=== PATIENT | female | born 1970 | race Caucasian/White ===

== ENCOUNTER 2018-08-18 20:48 | Emergency (ER) | payer OTHER ==
[~2018-08-18] VITALS: Ht 177.8 cm; Wt 113.9 kg
[2018-08-18 20:58] VITALS: Ht 177.8 cm; Wt 113.9 kg
[2018-08-19 00:09] LABS: BASOPHIL % 0.5 % (0-2); PLATELET COUNT 248 x10^3mcL (130-400)
[2018-08-19 00:10] LABS: RED CELL DISTRIBUTION WIDTH 15.6 % (11.5-14.5)
[2018-08-19 00:22] LABS: CALCIUM 8.6 mg/dL (8.5-10.1); CARBON DIOXIDE 26.8 mmol/L (21-32); CHLORIDE SERUM 104 mmol/L (98-107); CREATININE SERUM 0.8 mg/dL (0.6-1.0); GFR1 > 60 mL/min; GLUCOSE SERUM 68 mg/dL (74-106); POTASSIUM SERUM 3.7 mmol/L (3.5-5.1); SODIUM SERUM 141 mmol/L (136-145)
[2018-08-19 00:30] LABS: ALKALINE PHOSPHATASE 109 U/L (46-116); ALT/SGPT 29 U/L (14-59); AST/SGOT 26 U/L (15-37); BILIRUBIN TOTAL 0.72 mg/dL (0.20-1.00); TOTAL PROTEIN, SERUM 6.6 g/dL (6.4-8.2)
[2018-08-19 00:31] LABS: ALBUMIN 3.3 g/dL (3.4-5.0)
[2018-08-19 04:50] VITALS: BP 142/66
== END 2018-08-19 04:50 | disposition left against medical advice (07) ==
LOC: ED 20:48
PROVIDERS: Emergency Medicine
DX: R06.02 Shortness of breath (principal); I11.0 Hypertensive heart disease with heart failure; I50.9 Heart failure, unspecified; F41.9 Anxiety disorder, unspecified; F43.10 Post-traumatic stress disorder, unspecified; Z98.890 Other specified postprocedural states
CPT/HCPCS: 36415; 85378; Q0092; Q9967

== ENCOUNTER 2018-09-07 14:48 | Inpatient (IN) | payer OTHER ==
[~2018-09-07] VITALS: Ht 177.8 cm; Wt 138.1 kg
--- NOTE | 2018-09-07 14:57 | NUR ---
EKG IN PROGRESS.
--- NOTE | 2018-09-07 15:21 | NUR ---
PT PRESENTS TO THE ED TODAY WITH C/C OF SOB. PT REPORTS THAT SHE WAS SEEN HERE IN ED X2 WEEKS AGO, AND WAS RULED OUT FOR "BLOOD CLOTS." PT WAS TOLD TO FIND A PMD AND F/U WITH A PMD AND SENT HOME WITH AN RX FOR LASIX. PT WAS UNABLE TO REFILL RX FOR LASIX, BUT TOOK HER MOTHER'S PRESCRIPTION. PT WAS UNABLE TO F/U WITH PMD AFTER SHE HAD MADE AN APPT YESTERDAY. PT REPORTS FEELING SOB X2 WEEKS, WORSE WHEN SHE TRIES TO DO HOUSE WORK AND WALK UP THE STAIRS. BILATERAL PITTING EDEMA NOTED TO PT'S LEGS. PT STATES "THEY AREN'T EVEN SWOLLEN ANYMORE, THEY WERE WAY WORSE." PT IS AWAKE AND ALERT, RESP E/U, SPEAKING IN FULL CLEAR SENTENCES, NAD NOTED. AWAITING MSE.
[2018-09-07 15:50] LABS: BASOPHIL % 0.4 % (0-2); PLATELET COUNT 228 x10^3mcL (130-400)
[2018-09-07 15:52] LABS: RED CELL DISTRIBUTION WIDTH 16.4 % (11.5-14.5)
[2018-09-07 16:03] LABS: CALCIUM 8.9 mg/dL (8.5-10.1); CARBON DIOXIDE 22.8 mmol/L (21-32); CHLORIDE SERUM 106 mmol/L (98-107); CREATININE SERUM 0.7 mg/dL (0.6-1.0); GFR1 > 60 mL/min; GLUCOSE SERUM 94 mg/dL (74-106); POTASSIUM SERUM 3.9 mmol/L (3.5-5.1); SODIUM SERUM 141 mmol/L (136-145)
[2018-09-07 16:08] LABS: ALKALINE PHOSPHATASE 109 U/L (46-116); ALT/SGPT 29 U/L (14-59); AST/SGOT 28 U/L (15-37); BILIRUBIN TOTAL 0.88 mg/dL (0.20-1.00)
[2018-09-07 16:09] LABS: ALBUMIN 3.3 g/dL (3.4-5.0)
--- NOTE | 2018-09-07 16:17 | NUR ---
PT SITTING COMFORTABLY IN GURNEY, AWAKE AND ALERT, RESP E/U, DENIES ANY CP. CALL LIGHT IN REACH. HUSBNAD REMAINS AT BEDSIDE.
--- NOTE | 2018-09-07 17:11 | NUR ---
PT MEDICATED PER ORDER, PT VERBALIZED UNDERSTANDING OF MEDICATION PRIOR TO ADMINISTRATION. PT SITTING UP IN GURNEY, AWAKE AND ALERT, RESP E/U, CALL LIGHT IN REACH. AT BEDSIDE.
--- NOTE | 2018-09-07 17:46 | NUR ---
PT CURRENTLY OFF UNIT AT CT.
--- NOTE | 2018-09-07 18:01 | NUR ---
PT RETURNED FROM CT VIA WC, NAD NOTED.
--- NOTE | 2018-09-07 18:26 | NUR ---
PT SITTING QUIELTY ON BED EATING FOOD AND DRINKING SPRITE. NO S/S OF DISTRESS. WILL CONTINUE TO MONITOR
--- NOTE | 2018-09-07 19:10 | NUR ---
RECEIVED REPORT FROM HEIDI FIELD FOR CONTINUED CARE OF PATIENT.
--- NOTE | 2018-09-07 19:23 | NUR ---
PROVIDED REPORT TO HEIDI TORRES FOR CONTIMUED CARE OF PATIENT.
[2018-09-07 19:32] LABS: MAGNESIUM 2.2 mg/dL (1.8-2.4); PHOSPHOROUS 3.5 mg/dL (2.5-4.9)
[2018-09-07 19:34] LABS: CHOLESTEROL/HDL RATIO 3.8
--- NOTE | 2018-09-07 19:35 | NUR ---
RECEIVED PT FROM ED VIA CALLY, CAME IN DUE TO SOB. AAOX4. DENIES HEADACHE/DIZZINESS. ABLE TO FOLLOW COMMANDS. NO SOB NOTED, W/ EVEN AND UNLABORED BREATHING. LUNG SOUNDS CTA. O2 SAT=98%, RA. DENIES CHEST PAIN/PRESSURE, SINUS TACHYCARDIA ON THE MONITOR. W/ +1-2 EDEMA. PULSES ARE PALPABLE. IV SITE PATENT AND INTACT. SIDE RAILS UPX2. CALL LIGHT ON REACH. ENDORSED TO PRIMARY NURSE BRIAN FOR CONTINUITY OF CARE
--- NOTE | 2018-09-07 19:36 | NUR ---
PT RECEIVED FROM RESOURCE NURSE. PT A/O X4, ABLE TO MAKE NEEDS KNOWN, PARTNER AT BEDSIDE. TELE #3, DENIES ANY CP/PRESSURE. PULSES PALPABLE, 1-2 PITTING EDEMA TO BLE. BREATHING IS EVEN AND UNLABORED ON RA, DENIES SOB, NO RESP DISTRESS NOTED. ABD SOFT AND ROUND, DENIES N/V. VOIDS FREELY, BRP. AMBULATORY WITH STEADY GAIT. SKIN IS WARM AND DRY, INTACT. PT DENIES ANY PAIN AT THIS TIME. IV TO RAC, 20g, PATENT AND INTACT, SITE FREE FROM REDNESS OR SWELLING. ORIENTED PT TO ROOM AND CALL LIGHT. BED IN LOWEST SETTING, SIDE RAILS UP X2, CALL LIGHT WITHIN REACH. WILL CONT TO MONITOR.
--- NOTE | 2018-09-07 19:38 | NUR ---
RECEIVED CALL FROM DR DEUTSCH (RADIOLOGIST). PER DR DEUTSCH, "THERE'S AN ADDENDUM TO THE CT ANGIO. THERE IS A HUGE RUL PE. PLEASE LET THE DR KNOW." DR MERCER MADE AWARE. AWAITING ORDERS AT THIS TIME.
[2018-09-07 19:48] VITALS: BP 143/102
[2018-09-07 19:54] VITALS: Ht 177.8 cm; Wt 138.1 kg
--- NOTE | 2018-09-07 20:04 | NUR ---
PER TIANA MCKEON TO GIVE 11,000 UNITS LOADING DOSE OF HEPARIN AND START AT 1800 UNITS/HR OF HEPARIN DRIP. PRIMARY NURSE BRIAN MADE AWARE
[2018-09-07 20:32] VITALS: BP 124/77
--- NOTE | 2018-09-07 21:32 | NUR ---
HEPARIN DRIP INITIATED ORDERED FOR PE. IV LOADING DOSE OF 11,000 UNITS HEPARIN GIVEN. HEPARIN DRIP INITIATED AT 1800 UNITS/HR AND VERIFIED WITH ISABEL GORDON. PT EDUCATED ON S/S OF ABNORMAL BLEEDING, PT VERBALIZES UNDERSTANDING. NO ACUTE DISTRESS NOTED. CALL LIGHT WITHIN REACH. WILL CONT TO MONITOR.
--- NOTE | 2018-09-08 00:24 | NUR ---
PT C/O INSOMNIA, PRN AMBIEN GIVEN ORDERED. NO ACUTE DISTRESS NOTED. CALL LIGHT WITHIN REACH. WILL CONT TO MONITOR.
--- NOTE | 2018-09-08 01:20 | NUR ---
PT C/O SOB, BREATHING IS EVEN AND UNLABORED, 02 SAT ON RA-94%. PT PLACED ON 2L NC, 02 SAT-96%. NO RESP DISTRESS NOTED. CALL LIGHT WITHIN REACH. WILL CONT TO MONITOR.
[2018-09-08 02:04] LABS: UA SPECIFIC GRAVITY 1.015 (1.005-1.035); microscopic required? YES; urine erythrocyte NEGATIVE (NEGATIVE)
[2018-09-08 02:09] LABS: AMPHETAMINE QUAL UR POSITIVE (See below)
[2018-09-08 04:26] LABS: BASOPHIL % 0.5 % (0-2); PLATELET COUNT 248 x10^3mcL (130-400)
[2018-09-08 04:29] LABS: CALCIUM 8.7 mg/dL (8.5-10.1); CARBON DIOXIDE 27.4 mmol/L (21-32); CHLORIDE SERUM 104 mmol/L (98-107); CREATININE SERUM 0.8 mg/dL (0.6-1.0); GFR1 > 60 mL/min; GLUCOSE SERUM 124 mg/dL (74-106); POTASSIUM SERUM 4.2 mmol/L (3.5-5.1); SODIUM SERUM 140 mmol/L (136-145)
[2018-09-08 04:32] LABS: RED CELL DISTRIBUTION WIDTH 16.5 % (11.5-14.5)
--- NOTE | 2018-09-08 04:50 | NUR ---
RECEIVED PTT RESULTS-48.1, THERAPEUTIC. NO CHANGE MADE TO HEPARIN INFUSION. HEPARIN DRIP INFUSING WELL AT 1800 UNITS/HR TO THE LFA, SITE FREE FROM REDNESS OR SWELLING. NEW PTT ORDERED FOR 09/08 AT 0850. PT IN NO ACUTE DISTRESS. CALL LIGHT WITHIN REACH. WILL CONT TO MONITOR.
[2018-09-08 06:10] VITALS: BP 127/86
--- NOTE | 2018-09-08 06:52 | NUR ---
PT SLEPT AT INTERVALS THROUGHOUT THE EVENING. BREATHING IS EVEN AND UNLABORED ON 2L NC, NO RESP DISTRESS NOTED. HOB ELEVATED. PT DENIES HAVING ANY PAIN AT THIS TIME. HEPARIN DRIP INFUSING WELL TO LFA AT 1800 UNITS/HR, SITE FREE FROM REDNESS OR SWELLING. NEXT PTT DRAW IS TODAY AT 0850. ALL NEEDS ANTICIPATED AND MET. NO ACUTE DISTRESS OBSERVED AT THIS TIME. CALL LIGHT WITHIN REACH. WILL ENDORSE CARE TO AM NURSE.
--- NOTE | 2018-09-08 07:15 | NUR ---
RECEIVED BEDSIDE REPORT FROM GAS PUMP ATTENDANT NURSE AT THIS TIME. PATIENT RESTING COMFORTABLY IN BED. NO APPARENT DISTRESS OR DISCOMFORT NOTED. BREATHING EVEN AND UNLABORED. PATIENT DENIES SHORTNESS OF BREATH. INFORMED PATIENT SHE HAS 2L NC IF NEEDED. PATIENT VERBALIZES UNDERSTANDING. PATIENT DENIES CHEST PAIN AT THIS TIME. TELE [address] IV PATENT AND INTACT. HEPARIN DRIP INFUSING AT 1800. AWAITING PTT LAB. ALL QUESTIONS AND CONCERNS ADDRESSED. ALL NEEDS ATTENDED TO. WILL CONTINUE TO MONITOR
--- NOTE | 2018-09-08 07:27 | NUR ---
PT IN NO ACUTE DISTRESS. CONTINUITY OF CARE ENDORSED TO GITA GORDON. ALL QUESTIONS AND CONCERNS ADDRESSED.
--- NOTE | 2018-09-08 09:08 | NUR ---
ECHOCARDIOGRAM PENDING-HAVING ULTRASOUND
--- NOTE | 2018-09-08 09:32 | NUR ---
ALL MORNING MEDICATIONS ADMINISTERED. PATIENT TOLERATED ADMINISTRATION WELL. NO ADVERSE EFFECTS NOTED. NO APPARENT DISTRESS OR DISCOMFORT NOTED. ALL NEEDS ATTENDED TO. WILL CONTINUE TO MONITOR
--- NOTE | 2018-09-08 09:39 | NUR ---
ECHOCARDIOGRAM PENDING-NURSE WITH PATIENT
--- NOTE | 2018-09-08 09:45 | NUR ---
ABG DRAWN BUT INSUFFICIENT SAMPLE. PT REFUSED ANOTHER ABG DRAW. RN AWARE. PT ON RA, SPO2 OF 92%. NO RESP DISTRESS NOTED. WILL CONT TO MONITOR
[2018-09-08 09:55] VITALS: BP 115/81
--- NOTE | 2018-09-08 10:00 | NUR ---
ECHOCARDIOGRAM PENDING-DOCTOR WITH PATIENT
[2018-09-08 10:09] VITALS: BP 115/81
--- NOTE | 2018-09-08 10:38 | NUR ---
PATIENT C/O ANXIETY AT THIS TIME. MEDICATED WITH 1MG OF ATIVAN IVP. PATIENT TOLERATED WELL. NO ADVERSE EFFECTS NOTED. ALL NEEDS ATTENDED TO. WILL CONTINUE TO MONITOR
--- NOTE | 2018-09-08 11:14 | NUR ---
SPOKE TO DR THORNTON AT THIS TIME REGARDING DIRECTOR PHARMACY SERVICES INFORMATION OF EF < 15. DR THORNTON TO PUT MANAGER SCHEDULING CONSULT. REPORTED TO DR THORNTON REGARDING PATIENT HEAVY BREATHING AND DR THORNTON TO ASSESS PATIENT. AWAITING FURTHER ORDERS. WILL PROCEED ORDERED. ALL NEEDS ATTENDED TO. WILL CONTINUE TO MONITOR
--- NOTE | 2018-09-08 11:39 | NUR ---
PTT AT 47.0 AND THERAPEUTIC AT THIS TIME. NO CHANGE TO HEPARIN DRIP. THIS IS SECOND PTT THAT IS THERAPEUTIC. WILL ORDER PTT DAILY Q AM AT THIS TIME PER NURSING PROTOCOL. ALL NEEDS ATTENDED TO. WILL CONTINUE TO MONITOR
--- NOTE | 2018-09-08 12:37 | NUR ---
PATIENT REFUSING 3 UNITS OF INSULIN FOR COVERAGE OF BLOOD SUGAR 156. WILL NOTIFY DR THORNTON. ALL NEEDS ATTENDED TO. WILL CONTINUE TO MONITOR
--- NOTE | 2018-09-08 12:41 | NUR ---
PAGED DR THORNTON AT THIS TIME TO SPEAK WITH FAMILY AND PATIENT REGARDING POC. ENCOURAGED PATIENT TO STAY IN HOSPITAL TO RECEIVE TREATMENT. EDUCATED PATIENT ABOUT RISK OF LEAVING. PATIENT VERBALIZES UNDERSTANDING, BUT INSISTS ON WANTING TO LEAVE HOSPITAL. AWAITING CALL BACK FROM DR THORNTON AT THIS TIME. WILL CONTINUE TO MONITOR
[2018-09-08 13:01] VITALS: BP 122/84
--- NOTE | 2018-09-08 15:05 | NUR ---
DR HAHN AT BEDSIDE REVIEWING POC WITH PATIENT AT THIS TIME. ALL NEEDS ATTENDED TO. WILL CONTINUE TO MONITOR
[2018-09-08 17:32] VITALS: BP 106/75
--- NOTE | 2018-09-08 17:34 | NUR ---
PATIENT C/O 7/10 POUNDING CHEST PAIN. PATIENT MEDICATED WITH NORCO PRN PO. PATIENT STATES NORCO WAS EFFECTIVE AND PAIN IS DECREASING TO 4/10. PATIENT VITAL SIGNS STABLE. BLOOD PRESSURE 133/79 (91), O2 97 ON 3 L NC, HR [address] THORNTON AWARE. ALL NEEDS ATTENDED TO. WILL CONTINUE TO MONITOR
--- NOTE | 2018-09-08 19:29 | NUR ---
PATIENT RESTING COMFORTABLY IN BED AT THIS TIME. NO APPARENT DISTRESS OR DISCOMFORT NOTED. IV PATENT AND INTACT. ALL QUESTIONS AND CONCERNS ADDRESSED. SAFETY PRECAUTIONS MAINTAINED. 3L NC IN PLACE AND PATIENT TOLERATING WELL. ALL NEEDS ATTENDED TO. WILL ENDORSE ALL CARE TO INVESTIGATIVE ANALYST NURSE
--- NOTE | 2018-09-08 20:20 | NUR ---
Awake and verbally responsive. No respiratory distress noted. Denies n/v. denies pain at this time. Heparin drip @ 1800units/hr. Will cont. to monitor. Call light within reach.
[2018-09-08 21:08] VITALS: BP 107/79
--- NOTE | 2018-09-09 04:00 | NUR ---
Afebrile. No significant change in condition noted. Denies n/v. pain controlled. Remained on heparin drip @ 1800units/hr.
[2018-09-09 06:21] VITALS: BP 116/82
[2018-09-09 07:11] LABS: BASOPHIL % 0.3 % (0-2); PLATELET COUNT 246 x10^3mcL (130-400); RED CELL DISTRIBUTION WIDTH 16.7 % (11.5-14.5)
[2018-09-09 07:14] LABS: CALCIUM 8.8 mg/dL (8.5-10.1); CHLORIDE SERUM 103 mmol/L (98-107); GFR1 > 60 mL/min; GLUCOSE SERUM 125 mg/dL (74-106); PHOSPHOROUS 4.1 mg/dL (2.5-4.9); POTASSIUM SERUM 4.4 mmol/L (3.5-5.1); SODIUM SERUM 138 mmol/L (136-145)
--- NOTE | 2018-09-09 07:20 | NUR ---
RECEIVED PT FROM PIPE AND BOILER COVERS SUPERVISOR. PT IS CRYING AND SAID SHE IS HAVING ANXIETY. PAGED TO INFORM. ASSESSED AND WILL DOCUMENT. DENIES ANY PAIN. SAFTEY PRECAUTIONS ARE IN PLACE. WILL MONITOR.
--- NOTE | 2018-09-09 07:21 | NUR ---
PT IS ON HEPARIN DRIP 1800U/HR. PTT IS THERAPEUTIC. NO SIGNS OF BLEEDING.
--- NOTE | 2018-09-09 07:40 | NUR ---
PT IS STILL CRYING FOR SHE IS HAVING ANXIETY. INFORMED CHARGE NURSE AND REINALDO. DOCTOR SAID SHE WILL ORDER MEDICINE.
--- NOTE | 2018-09-09 07:57 | NUR ---
ATIVAN 0.5MG PO GIVEN ORDERED FOR PT ANXIETY. NOW SHE IS CRYING FOR SHE CAN'T REACH HER , SHE IS BEEN TRYING TO CALL HIM. CALLED HER AND HE SAID HE IS ON THE WAY, INFORMED PT ABOUT THAT.
[2018-09-09 08:06] VITALS: BP 107/76
--- NOTE | 2018-09-09 08:30 | NUR ---
PT'S AT BEDSIDE. THEY ARE ARGUING FOR SOMETHING. PT SAID SHE WANT TO LEAVE. PT IS ON HEPARIN DRIP 1800U/HR. CHARGE NURSE AWARE. PAGED TO INFORM. PT SAID SHE WILL WAIT FOR TO SEE THE DOCTOR. PT IS STABLE. NO SOB NOTED. 95% SPO2 IN RA.
--- NOTE | 2018-09-09 08:30 | NUR ---
PT IS REFUSING TO WEAR TELE. SHE WANT TO LEAVE. CHARGE NURSE AWARE.
--- NOTE | 2018-09-09 09:30 | NUR ---
AND REINALDO DID ROUNDS, SPOKE WITH PT. THEY TOLD HER THEY WILL DISCHARGE HER AND PT HAVE TO TAKE A DOSE OF ELIQUIS PO IN THE HOSPITAL AND CONTINUE PRESCRIPTION AT HOME. PT AGREED.
[2018-09-09] MEDS ORDERED: ATIVAN0.5 M1 PO (10:33)
[2018-09-09] MEDS ORDERED: COR3 PO (10:33)
[2018-09-09] MEDS ORDERED: ZESTRIL5 MG PO (10:34)
[2018-09-09] MEDS ORDERED: ELIQUIS5 MG PO (10:35)
[2018-09-09 10:53] VITALS: BP 105/66
--- NOTE | 2018-09-09 11:50 | NUR ---
DISCHARGE INSTRUCTIONS AND PRECRIPTIONS GIVEN. PB SIGNED AND SENT WITH PT. IV REMOVED AND DRESSING APPLIED. TELE REMOVED AND RETURNED. PT DENIED ANY PAIN. LEAD C DEVELOPER GOT THE WHEELCHAIR IN AND PT SAT THE WHEELCHAIR. SHE SAID SHE DOESNOT FEEL GOOD, SHE CANNOT BREATH AND FEEL NAUSEA. ASSISTED PT BACK IN THE BED. PUT THE O2 2L BACK AND INFORMED RT TO GIVE BREATHING TX. PAGED TO INFORM. INFORMED ABOUT EVERYTHING, HE SAID PT MAY NOT LEAVE BUT HE ASKED TO STILL INFORM . WATING FOR CALL BACK. CHARGE NURSE AWARE. VITAL SIGNS TAKEN PQ=092/61(81), HR=92, RESP=18, TEMP=98.4 AND SPO2 96% IN 2L O2. LUNG SOUNDS STILL CLEAR. RT GIVING BREATHING TX.
--- NOTE | 2018-09-09 12:10 | NUR ---
PT FINISH BREATHING TX. SHE SAID SHE WANT TO WAIT AND RELAX AN HOUR AND SEE HOW IS SHE FEEL. PAGED AGAIN. CHARGE NURSE AWARE. AH=458.
--- NOTE | 2018-09-09 13:10 | NUR ---
PT IS STILL SLEEPING, STABLE. NO SOB NOTED.
--- NOTE | 2018-09-09 13:30 | NUR ---
RECEIVED PT. FROM DENNIS MELENDEZ RN. PT. A/A/O X4. FAMILY AT BEDSIDE. PT. STATED " I FEEL MUCH BETTER NOW. I'M READY TO GO HOME." DR. NAJERA PAGED FOR VERIFICATION OF THE DISCHARGE. DISCHARGE INSTRUCTIONS WERE GIVEN TO PT. EARLIER BY HEIDI COLLINS.
--- NOTE | 2018-09-09 13:30 | NUR ---
PT IS STILL SLEEPING. GAVE REPORT TO NURSE JILLIAN. CALLED AND INFORMED HER ABOUT PT HAS NOT DISCHARGE YET BECAUSE SHE WAS NOT FEELING GOOD WHEN SHE ABOUT TO LEAVE AND NOW SHE IS SLEEPING. SAID IF SHE IS FEELING GOOD SHE CAN STILL DISCHARGE, INFORM JILLIAN ABOUT THAT.
[2018-09-09 13:40] VITALS: BP 109/70
--- NOTE | 2018-09-09 13:43 | NUR ---
DR. NAJERA RETURNED PHONE CALL. DR. NAJERA SAID OK TO DISCHARGE PT. HOME AT THIS TIME SINCE PT. IS STABLE FOR DISCHARGE. TELE. MONITOR #3 REMOVED AND RETURNED TO TELE. MONITOR STATION.
--- NOTE | 2018-09-09 14:00 | NUR ---
PT. IS BEING DISCHARGED IN STABLE CONDITION VIA WHEELCHAIR. ALL BELONGINGS SENT HOME WITH PT. UPON DISCHARGE. ACCOMPANIED BY HER FAMILY AT THE TIME OF DISCHARGE.
== END 2018-09-09 14:09 | disposition home or self-care (01) | DRG 175 ==
LOC: ED 14:48 → DU 17:44
PROVIDERS: Emergency Medicine; ADMIT General Practice
DX: I26.99 Other pulmonary embolism without acute cor pulmonale (principal); I50.43 Acute on chronic combined systolic (congestive) and diastolic (congestive) heart failure; J96.01 Acute respiratory failure with hypoxia; N17.0 Acute kidney failure with tubular necrosis; Z68.41 Body mass index [BMI] 40.0-44.9, adult; E11.9 Type 2 diabetes mellitus without complications; D50.9 Iron deficiency anemia, unspecified; F41.9 Anxiety disorder, unspecified; F15.10 Other stimulant abuse, uncomplicated; F12.10 Cannabis abuse, uncomplicated; E66.01 Morbid (severe) obesity due to excess calories; Z98.84 Bariatric surgery status; Z85.42 Personal history of malignant neoplasm of other parts of uterus
CPT/HCPCS: 82962; 83880; 85378; J1644; J1940; J2060; J2270; J2543; J7050; J7620; Q0092; Q9967

== ENCOUNTER 2018-09-14 18:19 | Emergency (ER) | payer OTHER ==
[~2018-09-14] VITALS: Ht 177.8 cm; Wt 138.3 kg
[~2018-09-14 18:19] MED LIST: ATIVAN0.5 M1 PO; COR3 PO; ELIQUIS5 MG PO; ZESTRIL5 MG PO
[2018-09-14 18:32] VITALS: Ht 177.8 cm; Wt 138.3 kg
[2018-09-14 19:56] LABS: BASOPHIL % 1.6 % (0-2); PLATELET COUNT 294 x10^3mcL (130-400)
[2018-09-14 20:02] LABS: RED CELL DISTRIBUTION WIDTH 16.9 % (11.5-14.5)
[2018-09-14 20:07] LABS: CALCIUM 8.9 mg/dL (8.5-10.1); CARBON DIOXIDE 27.5 mmol/L (21-32); CHLORIDE SERUM 107 mmol/L (98-107); CREATININE SERUM 0.8 mg/dL (0.6-1.0); GFR1 > 60 mL/min; GLUCOSE SERUM 109 mg/dL (74-106); POTASSIUM SERUM 4.6 mmol/L (3.5-5.1); SODIUM SERUM 143 mmol/L (136-145)
[2018-09-14 20:12] LABS: ALBUMIN 3.1 g/dL (3.4-5.0); ALKALINE PHOSPHATASE 116 U/L (46-116); ALT/SGPT 53 U/L (14-59); AST/SGOT 28 U/L (15-37); BILIRUBIN TOTAL 0.6 mg/dL (0.20-1.00); TOTAL PROTEIN, SERUM 6.7 g/dL (6.4-8.2)
[2018-09-14 21:17] LABS: AMPHETAMINE QUAL UR NONE DETECTED (See below)
[2018-09-14 22:28] VITALS: BP 148/96
== END 2018-09-14 22:28 | disposition home or self-care (01) ==
LOC: ED 18:19
PROVIDERS: Emergency Medicine
DX: R06.00 Dyspnea, unspecified (principal); F41.9 Anxiety disorder, unspecified; J91.8 Pleural effusion in other conditions classified elsewhere; E66.9 Obesity, unspecified; I11.0 Hypertensive heart disease with heart failure; I50.9 Heart failure, unspecified; Z68.41 Body mass index [BMI] 40.0-44.9, adult
CPT/HCPCS: 36600; 83880; J2060; J2405; J3490; Q0092

== ENCOUNTER 2018-09-21 12:53 | Inpatient (IN) | payer OTHER ==
[~2018-09-21] VITALS: Ht 177.8 cm; Wt 140.8 kg
[2018-09-21 14:03] LABS: BASOPHIL % 0.7 % (0-2); PLATELET COUNT 307 x10^3mcL (130-400)
[2018-09-21 14:07] LABS: CHLORIDE SERUM 107 mmol/L (98-107); CREATININE SERUM 0.8 mg/dL (0.6-1.0); GFR1 > 60 mL/min; GLUCOSE SERUM 86 mg/dL (74-106); POTASSIUM SERUM 4.7 mmol/L (3.5-5.1); SODIUM SERUM 140 mmol/L (136-145)
[2018-09-21 14:09] LABS: RED CELL DISTRIBUTION WIDTH 17.2 % (11.5-14.5)
[2018-09-21 14:12] LABS: ALKALINE PHOSPHATASE 121 U/L (46-116); ALT/SGPT 43 U/L (14-59); AST/SGOT 31 U/L (15-37); BILIRUBIN TOTAL 0.7 mg/dL (0.20-1.00); TOTAL PROTEIN, SERUM 6.8 g/dL (6.4-8.2)
[2018-09-21 14:14] LABS: ALBUMIN 3.2 g/dL (3.4-5.0)
[2018-09-21 17:03] LABS: microscopic required? YES; urine erythrocyte NEGATIVE (NEGATIVE)
[2018-09-21 17:10] LABS: AMPHETAMINE QUAL UR NONE DETECTED (See below)
[2018-09-21 17:11] LABS: T3 TOTAL 1.16 ng/mL
[2018-09-21 17:15] LABS: FREE T4 1.02 ng/dL (0.76-1.46); FREE THYROXINE INDEX 2.8 ug/dL (1.4-4.5); T4(THYROXINE) 7.8 ug/dL (4.7-13.3)
[2018-09-21 17:27] VITALS: BP 119/74
[2018-09-21 17:28] LABS: MAGNESIUM 2.1 mg/dL (1.8-2.4); PHOSPHOROUS 4.3 mg/dL (2.5-4.9)
[2018-09-21 17:32] LABS: CHOLESTEROL/HDL RATIO 3.3
[2018-09-21 17:33] VITALS: Ht 177.8 cm; Wt 140.8 kg
[2018-09-21 20:43] VITALS: BP 110/83
[2018-09-22 04:20] VITALS: BP 124/87
[2018-09-22 06:47] LABS: BASOPHIL % 0.6 % (0-2); PLATELET COUNT 252 x10^3mcL (130-400)
[2018-09-22 06:52] LABS: CALCIUM 9.1 mg/dL (8.5-10.1); CHLORIDE SERUM 107 mmol/L (98-107); CREATININE SERUM 0.9 mg/dL (0.6-1.0); GFR1 > 60 mL/min; GLUCOSE SERUM 112 mg/dL (74-106); MAGNESIUM 1.9 mg/dL (1.8-2.4); PHOSPHOROUS 4.8 mg/dL (2.5-4.9); POTASSIUM SERUM 4.3 mmol/L (3.5-5.1); SODIUM SERUM 143 mmol/L (136-145)
[2018-09-22 06:58] LABS: RED CELL DISTRIBUTION WIDTH 16.9 % (11.5-14.5)
[2018-09-22 09:17] VITALS: BP 127/89
[2018-09-22 12:49] VITALS: BP 118/86
[2018-09-22 22:11] VITALS: BP 119/79
[2018-09-23 05:45] VITALS: BP 116/67
[2018-09-23 07:23] LABS: BASOPHIL % 0.5 % (0-2); PLATELET COUNT 274 x10^3mcL (130-400); RED CELL DISTRIBUTION WIDTH 17.6 % (11.5-14.5)
[2018-09-23 09:41] LABS: CALCIUM 9.5 mg/dL (8.5-10.1); CARBON DIOXIDE 27.4 mmol/L (21-32); CHLORIDE SERUM 106 mmol/L (98-107); CREATININE SERUM 0.8 mg/dL (0.6-1.0); GFR1 > 60 mL/min; GLUCOSE SERUM 114 mg/dL (74-106); MAGNESIUM 2.1 mg/dL (1.8-2.4); PHOSPHOROUS 4.6 mg/dL (2.5-4.9); SODIUM SERUM 144 mmol/L (136-145)
== END 2018-09-23 08:47 | disposition left against medical advice (07) | DRG 291 ==
LOC: ED 12:53 → DU 15:49 → MU 09-22 13:32
PROVIDERS: Emergency Medicine; ADMIT Family Medicine
DX: I50.23 Acute on chronic systolic (congestive) heart failure (principal); J96.01 Acute respiratory failure with hypoxia; N17.0 Acute kidney failure with tubular necrosis; I26.99 Other pulmonary embolism without acute cor pulmonale; E44.1 Mild protein-calorie malnutrition; J90 Pleural effusion, not elsewhere classified; Z68.41 Body mass index [BMI] 40.0-44.9, adult; E66.01 Morbid (severe) obesity due to excess calories; F41.9 Anxiety disorder, unspecified; F15.10 Other stimulant abuse, uncomplicated; F12.10 Cannabis abuse, uncomplicated; Z53.09 Procedure and treatment not carried out because of other contraindication; Z53.29 Procedure and treatment not carried out because of patient's decision for other reasons
CPT/HCPCS: 82962; 83880; 84439; 87116; 87206; 94150; J1940; J1956; J7620; Q0092

== ENCOUNTER 2018-09-24 21:42 | Inpatient (IN) | payer OTHER ==
[~2018-09-24] VITALS: Ht 177.8 cm; Wt 132.1 kg
--- NOTE | 2018-09-24 21:55 | NUR ---
PT C/O SOB X2HRS. PT STS THAT HER PMD TOLD HER TO NOT TAKE HER HF MEDS, SO PT HAS BEEN NON-COMPLIANT W/ MEDS. PT IS POOR HISTORIAN. PT REPORTS NON-RADIATING PRESSURE ON HER CHEST, DESCRIBED "A BRICK SITTING ON MY CHEST." PT STS THAT THE SOB IS EXACERBATED W/ EXERTION, BUT "NOT BAD" WHEN SHE ISN'T MOVING. PT REPORTS NO OTHER COMPLAINTS. RESPS E/U. LUNG SOUNDS CLEAR THROUGHOUT. PT PLACED ON KELP CUTTER AND PULSE OX. NAD NOTED AT THIS TIME.
--- NOTE | 2018-09-24 22:12 | NUR ---
X-RAY AT BEDSIDE
--- NOTE | 2018-09-24 22:17 | NUR ---
RT AT BEDSIDE
--- NOTE | 2018-09-24 22:26 | NUR ---
PT RECIEVING BREATHING TREATMENT
[2018-09-24 22:32] LABS: BASOPHIL % 0.8 % (0-2); PLATELET COUNT 322 x10^3mcL (130-400)
[2018-09-24 22:36] LABS: RED CELL DISTRIBUTION WIDTH 16.9 % (11.5-14.5)
[2018-09-24 22:41] LABS: CALCIUM 9.3 mg/dL (8.5-10.1); CARBON DIOXIDE 26.7 mmol/L (21-32); CHLORIDE SERUM 106 mmol/L (98-107); CREATININE SERUM 0.8 mg/dL (0.6-1.0); GFR1 > 60 mL/min; GLUCOSE SERUM 84 mg/dL (74-106); POTASSIUM SERUM 4.5 mmol/L (3.5-5.1); SODIUM SERUM 142 mmol/L (136-145)
[2018-09-24 22:52] LABS: ALBUMIN 3.2 g/dL (3.4-5.0); ALKALINE PHOSPHATASE 111 U/L (46-116); ALT/SGPT 27 U/L (14-59); AST/SGOT 19 U/L (15-37); BILIRUBIN TOTAL 0.61 mg/dL (0.20-1.00); TOTAL PROTEIN, SERUM 7.5 g/dL (6.4-8.2)
--- NOTE | 2018-09-24 22:54 | NUR ---
PT AWAKE AND ALERT, SITTING IN POSITION OF COMFORT, HOB ELEVATED. PT SPEAKING IN FULL SENTENCES, ANSWERING QUESTIONS APPROPRIATELY. VSS, RESPS E/U, NAD NOTED.
--- NOTE | 2018-09-24 22:55 | NUR ---
PT SATURATING 90% ON RA. PT PLACED ON 2L VIA NC
[2018-09-25] VITALS (7 sets, daily range): BP systolic 100–132; BP diastolic 60–86
--- NOTE | 2018-09-25 00:33 | NUR ---
MEDICATION ADMINISTERED PER MD ORDER. PT LAYING IN BED IN POSITION OF COMFORT, HOB ELEVATED. PT AWAKE AND ALERT, SPEAKING IN FULL SENTENCES. VSS, RESPS E/U, NAD NOTED. CALL LIGHT W/IN REACH.
--- NOTE | 2018-09-25 01:15 | NUR ---
PT STATES "I HAVE TO PEE, ALL THIS FLUID GOING IN, I NEED TO PEE". PT ASSISTED TO BEDSIDE COMMODE. PT A&0X4, SPEAKING FULL CLEAR SENTENCES. PT IN NAD. BREATHING EVEN AND UNLABORED. CM, 02 MONITOR, AND O2 VIA NC IN PLACE. PT INSTRUCTED TO USE CALL LIGHT FOR ASSISTANCE. PT VERBALIZED UNDERSTANDING. WILL CONTINUE TO MONITOR.
[2018-09-25] MEDS ORDERED: ZESTRIL5 MG PO (01:23)
--- NOTE | 2018-09-25 02:36 | NUR ---
REPORT GIVEN TO LILO GORDON
--- NOTE | 2018-09-25 03:15 | NUR ---
RECEIVED PT FROM ED VIA CALLY ACCOMPANIED BY RN. PT AA&O X4. NO SOB ON ROOM AIR. NO C/O PAIN AT THIS TIME. NO DISTRESS NOTED. IV TO LFA, INTACT. ORIENTED PT TO ROOM. SAFETY MEASURES IN PLACE. BED IN LOWEST POSITION. SIDE RAILS UP X2. DEMONSTRATED HOW TO USE THE CALL LIGHT. CALL LIGHT WITHIN REACH. WILL CONTINUE TO MONITOR.
[2018-09-25 03:57] LABS: microscopic required? NO
[2018-09-25 04:19] LABS: urine erythrocyte NEGATIVE (NEGATIVE)
[2018-09-25 04:28] LABS: AMPHETAMINE QUAL UR NONE DETECTED (See below)
--- NOTE | 2018-09-25 07:05 | NUR ---
RECEIVED PT FROM MOISE RN. PT AA/OX4. LAYING IN BED. NO S/S OF ACUTE DISTRESS. DENIES PAIN. NO CHEST PAIN AT THIS TIME. REPORTS SOB WITH EXERTION. NO SOB ON ROOM AIR AT THIS TIME. RR EVEN/UNLABORED. CALM/COOPERATIVE. IV WNL. FLUID RESTRICTION IN PLACE, PT EDUCATED OF 1200ML FLUID RESTRICTION. VERBALIZED UNDERSTANDING. BED IN LOW POSITION. CALL LIGHT WITHIN REACH. INSTRUCTED TO USE CALL LIGHT TO CALL FOR ASSISTANCE PRN. VERBALIZED UNDERSTANDING. WILL CONT. TO MONITOR.
--- NOTE | 2018-09-25 07:21 | NUR ---
PT RESTED AT LONG INTERVALS DURING SHIFT. NO SOB ON ROOM AIR. NO C/O PAIN. NO DISTRESS NOTED. SAFETY MEASURES MAINTAINED. CALL LIGHT WITHIN REACH. WILL ENDORSE CONTINUITY OF CARE TO DAY SHIFT RN.
--- NOTE | 2018-09-25 12:43 | NUR ---
EATING LUNCH. NO S/S OF ACUTE DISTRESS. DENIES SOB AT THIS TIME. DENIES PAIN. NO S/S OF ACUTE DISTRESS. CALM/COOPERATIVE. BED IN LOW POSITION. CALL LIGHT WITHIN REACH. AA/OX4. WILL CONTINUE TO MONITOR.
--- NOTE | 2018-09-25 15:20 | NUR ---
RECEIVED ORDERS FOR US GUIDED THORACENTESIS. PATIENT HAS >2L RT SIDE. HAS BEEN OFF OF ELIQUIS FOR A DAY. SPOKE WITH CHARGE NURSE LILO TO INFORM HER THAT RADIOLOGIST NOT ON SITE AT THIS TIME, PLAN TO DO THE PROCEDURE TOMORROW UNLESS NEEDED URGENTLY, IN WHICH CASE THE MOTOR BRAKEMAN RADIOLOGIST CAN BE UTILIZED. LILO WILL CONFER WITH DR NAJERA. NORMALLY WOULD WAIT FOR ELIQUIS TO BE DC'D X 48 HRS FOR THORACENTSIS.
--- NOTE | 2018-09-25 15:33 | NUR ---
RECEIVED CALL FROM CHARGE NURSE LILO, SHE HAS SPOKEN TO DR DR NAJERA AND THE THORACENTESIS CAN BE DONE TOMORROW. REMINDED LILO THAT IF NEEDED URGENTLY WE CAN ALWAYS CALL IN THE ON-CALL RADIOLOGIST, LILO WILL RELAY MESSAGE TO THE EVENING SHIFT.
--- NOTE | 2018-09-25 18:17 | NUR ---
PT AMBULATING IN HALLWAYS. TOLERATING ACTIVITY WELL. NO S/S OF ACUTE DISTRESS. AA/OX4, NO SOB ON ROOM AIR. NO CHEST PAIN. CALM/COOPERATIVE. WILL ENDORSE TO ONCOMING SHIFT.
--- NOTE | 2018-09-25 19:52 | NUR ---
RECEIVED PT IN BED AAOX4 NO RESP DISTRESS NOTED, LUNG SOUNDS DIMINISHED , ABD SOFT BS ACTIVE X4 , ON TELE NUMBER [address] HR 101, 1+ EDSM NOTED BILAT LOWER EXTR , PT'S O N FLUIDS RESTRICTION WILL CON'T TO MONITOR . CALL LIGHT WITHIN PT'S REACH .
[2018-09-26] VITALS (11 sets, daily range): BP systolic 94–112; BP diastolic 56–71; Ht 177.8 cm; Wt 132.1 kg
--- NOTE | 2018-09-26 01:02 | NUR ---
PT IN BED WITH EYES CLOSED, TELE ST HR 105 PIV INTACT INFUSING WELL ,
--- NOTE | 2018-09-26 06:45 | NUR ---
NO CHANGES OF CONDITION NOTED, ALL DUE MEDS GIVEN NO REACTION NOTED, PIV INTACT INFUSING WELL , TELE ST HRN 102
[2018-09-26 07:01] LABS: BASOPHIL % 0.5 % (0-2); PLATELET COUNT 270 x10^3mcL (130-400)
[2018-09-26 07:16] LABS: CALCIUM 9.2 mg/dL (8.5-10.1); CARBON DIOXIDE 32.9 mmol/L (21-32); CHLORIDE SERUM 106 mmol/L (98-107); CREATININE SERUM 0.8 mg/dL (0.6-1.0); GFR1 > 60 mL/min; GLUCOSE SERUM 121 mg/dL (74-106); POTASSIUM SERUM 3.9 mmol/L (3.5-5.1); SODIUM SERUM 143 mmol/L (136-145)
[2018-09-26 07:23] LABS: RED CELL DISTRIBUTION WIDTH 17.5 % (11.5-14.5)
--- NOTE | 2018-09-26 08:31 | NUR ---
PT REFUSED HHN TX AT THIS TIME, SHE STATED SHE IS IN NO DISTRESS AND DOES NOT NEED IT. PT WAS ADVISED TO CALL FOR PRN TX IF SHE FEELS SOB.
--- NOTE | 2018-09-26 10:19 | NUR ---
AT 0715 - RECEIVED PATIENT FROM NIGHT NURSE. AWAKE, ALERT AND ORIENTED . RESPIRATIONS REGULAR WITH DYSPNEA ON EXERTION. MONITOR SHOWING SINUS TACH; RATE 100-110. NO C/O PAIN. IV SALINE LOCK. PATIENT AWARE OF NEED TO MEASURE URINE OUTPUT. AT 0800 - AMBULATING IN HALLWAY. PATIENT IS FOR THROACENTESIS TODAY. AT 0915 - GIVEN IV LASIX 40 MG PER EMAR. AT 1015 - RADIOLOGIST AND RADIOTELEGRAPH OPERATOR SERVICER AT BEDSIDE FOR THORACENTESIS UNDER U/S GUIDANCE.
--- NOTE | 2018-09-26 10:51 | NUR ---
AT 1025 - R THORACENTESIS COMPLETED. TOTAL OF 1300 ML REMOVED. TAKEN TO LAB FOR ORDERED TESTS. PATIENT MADE COMFORTABLE. STUDENT NURSE WITH PATIENT, MONITORING VS.
--- NOTE | 2018-09-26 11:40 | NUR ---
VSS BUT PATIENT C/O R SIDE PAIN 10/25 WITH SOME SOB. PALCED ON O2 VIA NC AT 2L. CALLED SUN ALVAREZ TO OBTAIN PAIN MEDICATION ORDER.
--- NOTE | 2018-09-26 13:47 | NUR ---
PT REFUSED HHN TX AT THIS TIME. PT WAS ADVISED TO CALL FOR PRN TX IF NEEDED.
[2018-09-26 13:57] LABS: APPEARANCE FLUID CLEAR; COLOR FLUID YELLOW; SOURCE FLUID THORACENTESIS; WBC FLUID 102 /cumm
[2018-09-26 13:58] LABS: LYMPHOCYTE FLUID 69 %; MONOCYTE FLUID 5 %; RBC FLUID 55 /cumm
--- NOTE | 2018-09-26 14:38 | NUR ---
SITTING ON BED. APPEARS COMFORTABLE. REPROTS THAT R SIDE PAIN HAS SUBSIDED. VSS. AMBULATES TO BATHROOM FOR TOILET NEEDS. PATIENT FOR DISCHARGE HOME TODAY.
--- NOTE | 2018-09-26 17:18 | NUR ---
PATIENT HAS HAD AFTERNOON DOSE OF IV LASIX. SAYS "I FEEL REALLY GOOD". WILL EAT DINNER AND BE DISCHARGED HOME AFTER 1800.
--- NOTE | 2018-09-26 18:35 | NUR ---
PRITNED DISCHARGE INSTRUCTIONS GIVEN AND EXPLAINED TO PATIENT. IV CATHETER REMOVED INTACT.
== END 2018-09-26 18:52 | disposition home or self-care (01) | DRG 291 ==
LOC: ED 21:42 → DU 09-25 00:26 → EDBEDREQ 09-25 00:27 → DU 09-25 02:50
PROVIDERS: Emergency Medicine; Internal Medicine; ADMIT Family Medicine
PROC: 0W993ZZ Drainage of Right Pleural Cavity, Percutaneous Approach (ICD-10-PCS; principal; 2018-09-26)
DX: I11.0 Hypertensive heart disease with heart failure (principal); J96.01 Acute respiratory failure with hypoxia; N17.0 Acute kidney failure with tubular necrosis; Z68.41 Body mass index [BMI] 40.0-44.9, adult; E44.1 Mild protein-calorie malnutrition; J90 Pleural effusion, not elsewhere classified; I50.23 Acute on chronic systolic (congestive) heart failure; I43 Cardiomyopathy in diseases classified elsewhere; D50.9 Iron deficiency anemia, unspecified; E11.9 Type 2 diabetes mellitus without complications; F41.9 Anxiety disorder, unspecified; F15.10 Other stimulant abuse, uncomplicated; F12.10 Cannabis abuse, uncomplicated; E66.01 Morbid (severe) obesity due to excess calories; Z85.42 Personal history of malignant neoplasm of other parts of uterus; Z85.43 Personal history of malignant neoplasm of ovary; Z98.84 Bariatric surgery status; Z87.891 Personal history of nicotine dependence; Z86.711 Personal history of pulmonary embolism; Z79.01 Long term (current) use of anticoagulants; Z91.19 Patient's noncompliance with other medical treatment and regimen; Z53.29 Procedure and treatment not carried out because of patient's decision for other reasons
CPT/HCPCS: 32555; 36600; 83880; 87116; 87206; 88344; 94150; C1729; G0378; J1940; J2060; J7030; J7620; Q0092

== ENCOUNTER 2018-10-23 17:19 | Emergency (ER) | payer OTHER ==
[~2018-10-23] VITALS: Ht 177.8 cm; Wt 121.6 kg
[2018-10-23 17:21] VITALS: BP 143/94; Ht 177.8 cm; Wt 121.6 kg
== END 2018-10-23 18:20 | disposition home or self-care (01) ==
LOC: ED 17:19
DX: Z76.0 Encounter for issue of repeat prescription (principal); I10 Essential (primary) hypertension; F41.9 Anxiety disorder, unspecified

== ENCOUNTER 2018-11-28 14:01 | Emergency (ER) | payer OTHER ==
[~2018-11-28] VITALS: Ht 175.3 cm; Wt 131.1 kg
[2018-11-28 14:09] VITALS: Ht 175.3 cm; Wt 131.1 kg
[2018-11-28 15:16] LABS: BASOPHIL % 0.6 % (0-2); PLATELET COUNT 253 x10^3mcL (130-400)
[2018-11-28 15:17] LABS: RED CELL DISTRIBUTION WIDTH 24.2 % (11.5-14.5)
[2018-11-28 15:23] LABS: CALCIUM 9.5 mg/dL (8.5-10.1); CARBON DIOXIDE 25.6 mmol/L (21-32); CHLORIDE SERUM 106 mmol/L (98-107); CREATININE SERUM 0.6 mg/dL (0.6-1.0); GFR1 > 60 mL/min; GLUCOSE SERUM 70 mg/dL (74-106); POTASSIUM SERUM 4.3 mmol/L (3.5-5.1); SODIUM SERUM 141 mmol/L (136-145)
[2018-11-28 15:28] LABS: ALBUMIN 3.4 g/dL (3.4-5.0); ALKALINE PHOSPHATASE 101 U/L (46-116); ALT/SGPT 34 U/L (14-59); AST/SGOT 26 U/L (15-37); BILIRUBIN TOTAL 0.4 mg/dL (0.20-1.00); TOTAL PROTEIN, SERUM 7.6 g/dL (6.4-8.2)
[2018-11-28 16:23] VITALS: BP 135/74
== END 2018-11-28 16:23 | disposition home or self-care (01) ==
LOC: ED 14:01
PROVIDERS: Emergency Medicine
DX: R07.89 Other chest pain (principal); I10 Essential (primary) hypertension; F41.9 Anxiety disorder, unspecified; Z86.711 Personal history of pulmonary embolism
CPT/HCPCS: 36415; Q0092

== ENCOUNTER 2019-05-24 09:23 | Emergency (ER) | payer OTHER ==
[~2019-05-24] VITALS: Ht 175.3 cm; Wt 154.7 kg
[2019-05-24 09:32] VITALS: Ht 175.3 cm; Wt 154.7 kg
[2019-05-24 11:15] LABS: BASOPHIL % 0.3 % (0-2); PLATELET COUNT 195 x10^3mcL (130-400); RED CELL DISTRIBUTION WIDTH 14.2 % (11.5-14.5)
[2019-05-24 11:35] LABS: CALCIUM 8.9 mg/dL (8.5-10.1); CARBON DIOXIDE 24.6 mmol/L (21-32); CHLORIDE SERUM 107 mmol/L (98-107); CREATININE SERUM 0.7 mg/dL (0.6-1.0); GFR1 > 60 mL/min; GLUCOSE SERUM 232 mg/dL (74-106); POTASSIUM SERUM 4.1 mmol/L (3.5-5.1); SODIUM SERUM 142 mmol/L (136-145)
[2019-05-24 13:18] VITALS: BP 137/81
== END 2019-05-24 13:18 | disposition home or self-care (01) ==
LOC: ED 09:23
PROVIDERS: Emergency Medicine
DX: I11.0 Hypertensive heart disease with heart failure (principal); I50.9 Heart failure, unspecified; R79.1 Abnormal coagulation profile
CPT/HCPCS: 36415; 83880; 85378; J1650; Q0092

== ENCOUNTER 2019-05-25 12:11 | Emergency (ER) | payer OTHER ==
[~2019-05-25] VITALS: Ht 172.7 cm; Wt 155.1 kg
[2019-05-25 12:35] VITALS: Ht 172.7 cm; Wt 155.1 kg
[2019-05-25 14:48] VITALS: BP 114/74
== END 2019-05-25 15:04 | disposition home or self-care (01) ==
LOC: ED 12:11
DX: R06.00 Dyspnea, unspecified (principal); R07.89 Other chest pain; R06.02 Shortness of breath; I11.0 Hypertensive heart disease with heart failure; I50.9 Heart failure, unspecified; E66.9 Obesity, unspecified; Z68.43 Body mass index [BMI] 50.0-59.9, adult

== ENCOUNTER 2019-07-03 12:00 | Emergency (ER) | payer OTHER ==
[~2019-07-03] VITALS: Ht 177.8 cm; Wt 156.0 kg
[2019-07-03 12:06] VITALS: BP 145/92; Ht 177.8 cm; Wt 156.0 kg
== END 2019-07-03 13:01 | disposition home or self-care (01) ==
LOC: ED 12:00
DX: Z76.0 Encounter for issue of repeat prescription (principal)

== ENCOUNTER 2019-08-13 13:36 | Emergency (ER) | payer OTHER ==
[~2019-08-13] VITALS: Ht 177.8 cm; Wt 158.3 kg
[2019-08-13 13:48] VITALS: BP 146/88; Ht 177.8 cm; Wt 158.3 kg
== END 2019-08-13 15:05 | disposition home or self-care (01) ==
LOC: ED 13:36
DX: Z76.0 Encounter for issue of repeat prescription (principal); I10 Essential (primary) hypertension

== ENCOUNTER 2019-09-06 12:17 | Emergency (ER) | payer OTHER ==
[~2019-09-06] VITALS: Ht 177.8 cm; Wt 160.1 kg
[2019-09-06 12:22] VITALS: BP 158/92; Ht 177.8 cm; Wt 160.1 kg
== END 2019-09-06 13:07 | disposition home or self-care (01) ==
LOC: ED 12:17
DX: I10 Essential (primary) hypertension (principal); Z76.0 Encounter for issue of repeat prescription; Z98.84 Bariatric surgery status

== ENCOUNTER 2019-10-17 17:38 | Emergency (ER) | payer OTHER ==
[~2019-10-17] VITALS: Ht 180.3 cm; Wt 161.9 kg
[2019-10-17 17:50] VITALS: Ht 180.3 cm; Wt 161.9 kg
[2019-10-17 18:11] VITALS: BP 153/91
== END 2019-10-17 18:11 | disposition home or self-care (01) ==
LOC: ED 17:38
DX: Z76.0 Encounter for issue of repeat prescription (principal); I10 Essential (primary) hypertension

== ENCOUNTER 2019-10-30 17:37 | Emergency (ER) | payer OTHER ==
[~2019-10-30] VITALS: Ht 177.8 cm; Wt 161.5 kg
[2019-10-30 17:49] VITALS: Ht 177.8 cm; Wt 161.5 kg
[2019-10-30 19:32] LABS: BASOPHIL % 0.8 % (0-2); PLATELET COUNT 177 x10^3mcL (130-400); RED CELL DISTRIBUTION WIDTH 13.8 % (11.5-14.5)
[2019-10-30 19:44] LABS: CALCIUM 9.5 mg/dL (8.5-10.1); CARBON DIOXIDE 28.1 mmol/L (21-32); CHLORIDE SERUM 103 mmol/L (98-107); CREATININE SERUM 0.8 mg/dL (0.6-1.0); GFR1 > 60 mL/min; GLUCOSE SERUM 198 mg/dL (74-106); POTASSIUM SERUM 4.3 mmol/L (3.5-5.1); SODIUM SERUM 138 mmol/L (136-145)
[2019-10-30 19:49] LABS: ALBUMIN 3.4 g/dL (3.4-5.0); ALKALINE PHOSPHATASE 115 U/L (46-116); ALT/SGPT 131 U/L (14-59); AST/SGOT 118 U/L (15-37); BILIRUBIN TOTAL 0.41 mg/dL (0.20-1.00); TOTAL PROTEIN, SERUM 7.5 g/dL (6.4-8.2)
[2019-10-30 22:22] VITALS: BP 118/71
== END 2019-10-30 22:22 | disposition home or self-care (01) ==
LOC: ED 17:37
PROVIDERS: Emergency Medicine
DX: R42 Dizziness and giddiness (principal); R11.0 Nausea; I10 Essential (primary) hypertension; Z98.84 Bariatric surgery status
CPT/HCPCS: 82962; J8597